=== PATIENT | female | born 1985 | race Caucasian/White ===

== ENCOUNTER 2023-12-30 14:40 | Outpatient (CLI) | payer BC, SELFPAY ==
--- NOTE | ~2023-12-30 | US_ITS ---
EXAMINATION: US OB <= 14 weeks fetus DATE: 12/30/2023 15:33 INDICATION: Subchorionic hematoma during first trimester TECHNIQUE: Real-time pelvic ultrasound utilizing both a transvaginal and transabdominal probe was pe rformed. The interpreting radiologist was not present for the study. COMPARISON: None. FINDINGS: The uterus measures 15.0 x 8.0 x 12.8 cm. There is an intrauterine gestational sac. A yolk sac and f etal pole are identified. The crown rump length measures 6.3 cm, which correlates with an estimated g estational age of 12 weeks and 5 days. heart motion is identified measuring 159 beats per minut e (bpm) by M-mode Doppler. The placenta is developing posterior fundal with 1.9 x 0.6 cm hypoechoic s ubchorionic hematoma along its posterior caudal margin. The right ovary measures 4.0 x 2.3 x 2.6 cm. The left ovary measures 4.0 x 2.6 x 2.6 cm. Small anechoic cysts/follicles at both ovaries measuring 2.0 cm on the right and 0.9 cm on the left. There is no free fluid in the pelvis. IMPRESSION: 1. Single living fetus with heart of 159 bpm. 2. Gestational age by ultrasound of 12 weeks 5 day(s) +/- 1 week and 1 day with ultrasound estimated date of delivery (ELLA) of 07/08/2024. Reviewed, dictated and finalized at location B. [place] BALLER IMPRESSION: 1. Single living fetus with heart of 159 bpm. 2. Gestational age by ultrasound of 12 weeks 5 day(s) +/- 1 week and 1 day wit h ultrasound estimated date of delivery (ELLA) of 07/08/2024.
== END 2023-12-30 14:41 ==
PROVIDERS: PCP Advanced Practice Midwife; Visit Provider Advanced Practice Midwife
DX: O36.8910 Maternal care for other specified fetal problems, first trimester, not applicable or unspecified (principal); Z3A.00 Weeks of gestation of pregnancy not specified
CPT/HCPCS: 76801

== ENCOUNTER 2024-02-19 16:14 | Outpatient (CLI) | payer BC, SELFPAY ==
--- NOTE | ~2024-02-19 | US_ITS ---
EXAMINATION: US OB /maternal detail DATE: 02/19/2024 17:02 INDICATION: Subchorionic hematoma. anatomic survey. TECHNIQUE: Real-time ultrasound of the pelvis was performed. COMPARISON: Ultrasound 12/30/2023 FINDINGS: There is a single living fetus in breech presentation. The placenta is fundal, 12.1 cm from the cerv ix. There is no hematoma. The cervical length is 3.9 cm on transabdominal images, which is normal. Fe gardenia heart rate is 133 beats per minute (bpm). The amniotic fluid volume is subjectively normal. The following biometric data were obtained: Biparietal diameter (BPD): 4.7 cm; head circumference (HC): 17.4 cm; abdominal circumference (AC): 15 .1 cm; femur length (FL): 3.1 cm. These measurements are concordant. Estimated weight is 322 g +/- 48 g, which correlates with the 42nd percentile when 07/08/24 is us ed as estimated date of delivery. As single measurements, these parameters are each equal to the following estimated gestational ages: BPD: 20 weeks 1 days. HC: 19 weeks 6 days. AC: 20 weeks 3 days. FL: 19 weeks 3 days. estimated gestational age based solely on measurements from this exam is 20 weeks 0 days +/- 1 weeks 3 days. The cerebral ventricles, cerebellum, cisterna magna, nuchal fold, lip, and visualized portions of the spine are normal. The heart is normal. The diaphragm, stomach, kidneys, and bladder are normal. Ther e are two umbilical arteries to yield a 3-vessel cord. The cord insertion is normal. IMPRESSION: 1. Single living fetus in breech presentation. 2. Estimated weight is 322 g +/- 48 g, which correlates with the 42nd percentile when 07/08/24 i s used as estimated date of delivery. This date was set by ultrasound on 12/30/2023. 3. Normal anatomic survey. Reviewed, dictated and finalized at location E. IMPRESSION: 1. Single living fetus in breech presentation. 2. Estimated weight is 322 g +/- 48 g, which correlates with the 42nd pe rcentile when 07/08/24 is used as estimated date of delivery. This date was set b y ultrasound on 12/30/2023. 3. Normal anatomic survey.
== END 2024-02-19 16:15 ==
LOC: MICIMG 16:19
PROVIDERS: PCP Obstetrics & Gynecology Gynecology; Visit Provider Obstetrics & Gynecology Gynecology
DX: O46.90 Antepartum hemorrhage, unspecified, unspecified trimester (principal); Z3A.00 Weeks of gestation of pregnancy not specified
CPT/HCPCS: 76805